=== PATIENT | male | born 1960 | race Caucasian/White ===

== ENCOUNTER 2017-05-23 00:08 | Emergency (ER) | payer OTHER ==
[~2017-05-23] VITALS: Ht 188 cm; Wt 99.8 kg
[~2017-05-23 00:08] MED LIST: ASPI325 PO; Prednisone20 MG PO
== END 2017-05-23 00:49 | disposition home or self-care (01) ==
LOC: ER 00:08
DX: F12.129 Cannabis abuse with intoxication, unspecified (principal)
CPT/HCPCS: 99282

== ENCOUNTER 2017-07-24 00:05 | Emergency (ER) | payer OTHER ==
[~2017-07-24] VITALS: Ht 185.4 cm; Wt 90.7 kg
[2017-07-24] MEDS ORDERED: ALBU90OI61 INH (00:31)
[2017-07-24] MEDS ORDERED: ASPI81CH PO (00:32)
[2017-07-24] MEDS ORDERED: LEVSOD50 PO (00:32)
[2017-07-24 01:00] LABS: BASOPHILS ABSOLUTE AUTO 0.04 K/mm3 (0.00-0.23); BASOPHILS PERCENT AUTO 1 % (0-2); EOSINOPHILS ABSOLUTE AUTO 0.36 K/mm3 (0.00-0.68); EOSINOPHILS PERCENT AUTO 5 % (0-6); Hematocrit 44.3 % (37.0-53.0); Hemoglobin 14.9 g/dL (13.5-17.5); IMMATURE GRAN ABSOLUTE AUTO 0.03 K/mm3 (0.00-0.10); IMMATURE GRAN PERCENT AUTO 0 % (0-1); LYMPHOCYTES ABSOLUTE AUTO 2.62 K/mm3 (0.84-5.20); LYMPHOCYTES PERCENT AUTO 33 % (21-46); MONOCYTES ABSOLUTE AUTO 0.52 K/mm3 (0.16-1.47); MONOCYTES PERCENT AUTO 7 % (4-13); Mean Corpuscular HGB 29.4 pg (26.0-34.0); Mean Corpuscular HGB Conc 33.6 g/dL (31.5-36.5); Mean Corpuscular Volume 87 fL (80-100); Mean Platelet Volume 9.3 fL (9.1-12.4); NEUTROPHILS ABSOLUTE AUTO 4.42 K/mm3 (1.96-9.15); NEUTROPHILS PERCENT AUTO 55 % (41-73); Platelet Count 252 K/mm3 (150-400); RDW Coefficient Variation 11.9 % (11.7-14.2); Red Blood Cell Count 5.07 M/mm3 (4.30-5.90); White Blood Cell Count 7.99 K/mm3 (4.00-11.30)
[2017-07-24 01:19] LABS: Alanine Aminotransfer (ALT/SGP 29 U/L (12-78); Albumin/Globulin Ratio 1.2 (0.8-1.8); Alk Phos 76 U/L (50-136); Anion Gap 9 mmol/L (6-16); Aspartate Aminotrans (AST/SGOT 14 U/L (12-37); Bilirubin, Total 0.4 mg/dL (0.1-1.0); Blood Urea Nitrogen 23 mg/dL (8-24); Bun/Creatinine Ratio 17.7 (12.0-20.0); CO2, Blood 25 mmol/L (21-32); Calcium, Blood 8.6 mg/dL (8.5-10.1); Chloride, Blood 107 mmol/L (98-108); Globulin, Blood 3.4 g/dL (2.2-4.0); Glomerular Filtration Rate 60 (60-); Glucose, Blood 110 mg/dL (70-99); Potassium, Blood 3.7 mmol/L (3.5-5.5); Sodium, Blood 141 mmol/L (136-145); Total Protein, Blood 7.4 g/dL (6.4-8.2); Troponin I <0.015 ng/mL (0.000-0.040)
[2017-07-24 03:47] LABS: Free Thyroxine 0.85 ng/dL (0.70-1.60); Troponin I <0.015 ng/mL (0.000-0.040)
== END 2017-07-24 04:26 | disposition home or self-care (01) ==
LOC: ER 00:05
PROVIDERS: Emergency Medicine
DX: R07.9 Chest pain, unspecified (principal); R21 Rash and other nonspecific skin eruption; E03.9 Hypothyroidism, unspecified; Z79.51 Long term (current) use of inhaled steroids; Z79.82 Long term (current) use of aspirin; Z88.8 Allergy status to other drugs, medicaments and biological substances
CPT/HCPCS: 36415; 71046; 80053; 84439; 84443; 84484; 85025; 93005; 93010; 99284; Q0163

== ENCOUNTER 2018-08-28 12:34 | Day surgery (SDC) | payer OTHER ==
[~2018-08-28] VITALS: Ht 185.4 cm; Wt 93.2 kg
[~2018-08-28 12:34] MED LIST changes: +ALBU90OI61 INH; +ASPI81CH PO; +LEVSOD50 PO; +METO100ER PO; +Nitrostat0.4 MG
--- NOTE | 2018-08-28 16:17 | NUR ---
08/28/18 1617 Alka Bang Melanie PT. HAD TOLD [facility] THAT HIS RIDE HOME WAS HIS DAUGHTER, SACHA. PT. WAS ASKED WHO HIS RIDE HOME WAS BEFORE GOING INTO PROCEDURE & PT. HAD TOLD [facility] THAT IT WAS HIS DAUGHTER SACHA. PT. WAS ASKED IF HE WANTED HER BACK AFTER THE PROCEDURE TO LISTEN WHAT THE DRChristy HAD TO SAY. PT. HAD VERBALIZED THAT SHE WAS FINE OUT THERE. POST PROCEDURE [facility] WENT OUT IN WAITING ROOM TO HAVE HIS DAUGHTER MOVE CAR CLOSER BUT SHE WASN'T IN WAITING ROOM. WENT BACK TO TELL PT. THAT HIS DAUGHTER WASN'T OUT IN WAITING ROOM & IF THE # ON HIS FACE SHEET FOR HIS DAUGHTER WAS CORRECT, PT. SAID SHE WASN'T HERE. THEN PT. SAID HIS DAUGHTER WAS SUPPOSED TO CALL JOSE ALBERTO, THAT HE HAD CALLED JOSE ALBERTO. [facility] HAD ASKED IF HE WAS GOING TO PULL UP IN FRONT. PT. SAID HE DIDN'T KNOW. PT. WENT TO & THEN WHEN COMING OUT FROM PT. SAID JOSE ALBERTO WASN'T COMING & MAYBE JOSE ALBERTO'S FRIEND COULD COME BUT PROBABLY NOT. THEN PT. ASKED HOW MUCH A TAXI WOULD COST, PT. LIVED IN [place]. PT. WANTED TO GO IN WAITING ROOM TO WAIT BUT I HAD ASKED PT. TO SIT IN HIS ROOM & I WOULD CALL TO SEE COST OF TAXI. I WENT & TALKED TO PETER MENDEZ & TOLD HER ABOUT THE SITUATION & WHEN I HAD COME OUT TO TALK WITH THE PT. PT. HAD WALKED OUT & TOLD ANOTHER NURSE THAT HE MIGHT KNOW SOMEONE TO TAKE HIM HOME FROM THE [facility]EP [facility]. HE HAD TOLD THAT [facility] THAT WE COULDN'T KEEP HIM HERE. PT. WALKED OUT OF [facility]. PT. WAS TOLD HE COULDN'T DRIVE, PT. HAD TOLD [facility] THAT HE DIDN'T DRIVE.
--- NOTE | 2018-08-28 17:26 | NUR ---
08/28/18 1726 Alka Bang S LATE ENTRY APPROX.1410 WHEN ASKED PT. IF HE HAD ANY PAIN, PT. VERBALIZED DIDN'T HAVE ANY PAIN BUT HE HAD DISCOMFORT IN HIS CHEST "DULL" & THAT WAS WHY HE WAS HERE. DR. KEY WAS NOTIFIED.
--- NOTE | 2018-08-28 17:29 | NUR ---
08/28/18 1729 Alka Bang LATE ENTRY FOR 1422 PT. SATS 89% ON 3L/NC AFTER SEDATION STARTED ON PT. O2 UP TO 5L/NC. 1423 PT. SATS 90% ON 5L/NC. 1426 PT. SATS 96% ON 5L/NC. 1445 PT. O2 DECREASED TO 3L/NC. SATS 95% ON RA POST PROCEDURE.
== END 2018-08-28 15:40 | disposition home or self-care (01) ==
LOC: ORSCSDS 12:34
PROVIDERS: Surgery
PROC: 0DB58ZX Excision of Esophagus, Via Natural or Artificial Opening Endoscopic, Diagnostic (ICD-10-PCS; principal; 2018-08-28 14:15)
PROC: 0DBH8ZX Excision of Cecum, Via Natural or Artificial Opening Endoscopic, Diagnostic (ICD-10-PCS; principal; 2018-08-28 14:15)
DX: K21.9 Gastro-esophageal reflux disease without esophagitis (principal); D12.0 Benign neoplasm of cecum; R13.10 Dysphagia, unspecified; Z12.11 Encounter for screening for malignant neoplasm of colon; Z80.0 Family history of malignant neoplasm of digestive organs; Z79.82 Long term (current) use of aspirin; Z79.899 Other long term (current) drug therapy; Z87.891 Personal history of nicotine dependence
CPT/HCPCS: 88305; J2704; J7120